=== PATIENT | male | born 1950 | race Caucasian/White ===

== ENCOUNTER 2022-06-09 21:57 | Inpatient (IN) | payer BC, MEDICARE ==
[2022-06-09] MEDS ORDERED: Acetaminophen 650 MG Suppository PR PRN (23:43)
[2022-06-09] MEDS ORDERED: Ondansetron PF 4 MG/2 ML Vial IVP PRN (23:43)
[2022-06-09] MEDS ORDERED: Ondansetron ODT 4 MG TAB PO PRN (23:43)
[2022-06-09] MEDS ORDERED: Acetaminophen 325 MG TAB PO PRN (23:43)
[2022-06-09] MEDS ORDERED: hydrALAZINE 20 MG/ML VIAL SLOW IVP PRN (23:47)
[2022-06-10 05:11] LABS: #Basophils 0.1 thou/uL (0.0-0.2); #Eosinphils 0.7 thou/uL (0.0-0.7); #Lymphocytes 2.6 thou/uL (1.20-3.40); #Monocytes 0.9 thou/uL (0.11-0.59); #Neutrophils 3.2 thou/uL (1.40-6.50); %Basophils 1.1 % (0.0-1.0); %Eosinophils 9.5 % (0.0-10.0); %Lymphocytes 34.7 % (21.0-51.0); %Monocytes 11.7 % (0.0-10.0); Hemoglobin 15.3 g/dL (14.0-18.0); Mean Corpuscular Hemoglobin 30.4 pg (27.0-31.0); Mean Corpuscular Volume 89.3 fL (78.0-98.0); Mean Platelet Volume 8.5 fL (7.4-10.4); Platelet Count 153 thou/uL (130-400); RBC Distribution Width 12.4 % (11.5-14.5); Red Blood Cell (RBC) Count 5.04 mill/uL (4.70-6.10); White Blood Cell (WBC) Count 7.4 thou/uL (4.8-10.8)
[2022-06-10 05:35] LABS: Anion Gap 12 mmol/L (10-20); BUN (Urea Nitrogen) 17 mg/dL (8.4-25.7); Calc. Creatinine Clearance 57 mL/min (70-130); Calcium 8.8 mg/dL (7.8-10.44); Carbon Dioxide 25 mmol/L (23-31); Cardiac Risk 6.1 (Less than 4.5); Chloride 108 mmol/L (98-107); Cholesterol 195 mg/dl (< 200 Desired); Estimated GFR 53; Glucose 125 mg/dL (83-110); HDL Cholesterol 32 mg/dL (>60 Neg Risk); LDL Cholesterol, Calculated 132 mg/dL; Potassium 4.2 mmol/L (3.5-5.1); Sodium 141 mmol/L (136-145); Triglycerides 156 mg/dL (Less than 150)
[2022-06-10] MEDS ORDERED: Sodium Chloride 0.9% 1,000 ML IV SCH (07:15)
[2022-06-10] MEDS ORDERED: Aspirin 325 mg Enteric Coated Tablet PO SCH (09:00)
[2022-06-10] MEDS: Enoxaparin Sodium 40 MG/0.4 ML SYRINGE SC SCH (09:10)
[2022-06-10] MEDS: Aspirin 81 mg Enteric Coated Tablet PO SCH (09:10)
[2022-06-10] MEDS ORDERED: Clopidogrel Bisulfate 75 MG TAB PO SCH (12:45)
[2022-06-10] MEDS ORDERED: Iopamidol 370 76% 100 ML VIAL ONE (16:04)
[2022-06-10] MEDS: Atorvastatin Calcium 40 MG TAB PO SCH (20:21)
[2022-06-11] MEDS ORDERED: Senokot S 8.6-50 MG TAB PO SCH (03:00)
[2022-06-11 05:27] LABS: Hemoglobin 15.2 g/dL (14.0-18.0); Mean Corpuscular Hemoglobin 29.1 pg (27.0-31.0); Mean Corpuscular Volume 88.2 fL (78.0-98.0); Mean Platelet Volume 8.5 fL (7.4-10.4); Platelet Count 153 thou/uL (130-400); RBC Distribution Width 12.3 % (11.5-14.5); Red Blood Cell (RBC) Count 5.24 mill/uL (4.70-6.10); White Blood Cell (WBC) Count 7.9 thou/uL (4.8-10.8)
[2022-06-11 05:42] LABS: Hemoglobin A1c 6.8 % (4.0-6.0)
[2022-06-11 05:48] LABS: Anion Gap 13 mmol/L (10-20); BUN (Urea Nitrogen) 16 mg/dL (8.4-25.7); Calc. Creatinine Clearance 60 mL/min (70-130); Calcium 8.9 mg/dL (7.8-10.44); Carbon Dioxide 24 mmol/L (23-31); Cardiac Risk 5.8 (Less than 4.5); Chloride 108 mmol/L (98-107); Cholesterol 191 mg/dl (< 200 Desired); Estimated GFR 56; Glucose 147 mg/dL (83-110); HDL Cholesterol 33 mg/dL (>60 Neg Risk); LDL Cholesterol, Calculated 131 mg/dL; Potassium 3.9 mmol/L (3.5-5.1); Sodium 141 mmol/L (136-145); Triglycerides 134 mg/dL (Less than 150)
[2022-06-11] MEDS ORDERED: Protamine Sulfate 50 MG/5 ML VIAL ONE (08:36)
[2022-06-11] MEDS ORDERED: Bupivacaine/Epinephrine 0.25% 30 ML VIAL ONE (08:36)
[2022-06-11] MEDS ORDERED: Heparin 5,000 UNITS/ML VIAL ONE (08:36)
[2022-06-11] MEDS ORDERED: Fentanyl 100 MCG/2 ML VIAL ONE (09:27)
[2022-06-11] MEDS ORDERED: Midazolam HCl 2 mg/2 ml Vial ONE (09:27)
[2022-06-11] MEDS ORDERED: Sodium Chloride 0.9% 100 ML ONE (09:32)
[2022-06-11] MEDS ORDERED: CEFAZOLIN 2 GM VIAL ONE (09:32)
[2022-06-11] MEDS ORDERED: Lidocaine 1% MPF 2 ML VIAL ONE ×2 (09:33→09:55)
[2022-06-11] MEDS ORDERED: niCARdipine 25 MG/10 ML VIAL ONE (10:00)
[2022-06-11] MEDS ORDERED: fentaNYL Citrate/PF 100 MCG/2 ML SYRINGE ONE (10:00)
[2022-06-11] MEDS ORDERED: Nitroglycerin 50 MG/250 ML BOT 0 ML ONE (10:00)
[2022-06-11] MEDS ORDERED: Phenylephrine 10 MG/ML VIAL ONE (10:00)
[2022-06-11] MEDS: Enoxaparin Sodium 40 MG/0.4 ML SYRINGE SC SCH (10:10)
[2022-06-11] MEDS: Aspirin 81 mg Enteric Coated Tablet PO SCH (10:10)
[2022-06-11] MEDS: Senokot S 8.6-50 MG TAB PO SCH ×2 (10:10→21:13)
[2022-06-11] MEDS ORDERED: Dexamethasone 20 MG/5 ML VIAL ONE (10:10)
[2022-06-11] MEDS ORDERED: Ondansetron PF 4 MG/2 ML Vial ONE (10:10)
[2022-06-11] MEDS: Clopidogrel Bisulfate 75 MG TAB PO SCH (10:10)
[2022-06-11] MEDS ORDERED: PROPOFOL 200 MG/20 ML VIAL ONE (10:10)
[2022-06-11] MEDS ORDERED: Rocuronium Bromide 10 MG/ML (10ML VIAL) ONE (10:10)
[2022-06-11] MEDS ORDERED: Glycopyrrolate 0.2 MG/ML 5 ML SYRINGE ONE (10:10)
[2022-06-11] MEDS ORDERED: ePHEDrine 50 MG/ML VIAL ONE (10:10)
[2022-06-11] MEDS ORDERED: Lidocaine 1% PF 5 ML VIAL ONE (10:10)
[2022-06-11] MEDS ORDERED: Ketorolac Tromethamine 30 MG/ML VIAL ONE (10:10)
[2022-06-11] MEDS ORDERED: Promethazine HCl 25 MG/ML VIAL IVPB PRN ×2 (10:50→11:58)
[2022-06-11] MEDS ORDERED: Ondansetron HCl/PF 4 MG/2 ML Vial IVP PRN ×2 (10:50→11:58)
[2022-06-11] MEDS ORDERED: HYDROmorphone 2 MG/ML VIAL SLOW IVP PRN (10:50)
[2022-06-11] MEDS ORDERED: Promethazine HCl 25 MG/ML VIAL IM PRN ×2 (10:50→11:58)
[2022-06-11] MEDS ORDERED: PACU-Morphine 4MG/ML VIAL SLOW IVP PRN (10:50)
[2022-06-11] MEDS ORDERED: Nitroglycerin 50 MG/250 ML BOT 250 ML IVPB PRN (11:40)
[2022-06-11] MEDS ORDERED: Fentanyl 100 MCG/2 ML VIAL SLOW IVP PRN (11:40)
[2022-06-11] MEDS ORDERED: Phenylephrine 40 MG in Sodium Chloride 0.9% 250 ML 250 ML IVPB PRN (11:40)
[2022-06-11] MEDS ORDERED: traMADol HCl 50 MG TAB PO PRN (11:40)
[2022-06-11] MEDS ORDERED: Sodium Chloride 0.9% 1,000 ML IV SCH (11:45)
[2022-06-11] MEDS: CEFAZOLIN 2 GM in Sodium Chloride 0.9% 100 ML IVPB SCH (17:41)
[2022-06-11] MEDS: Atorvastatin Calcium 40 MG TAB PO SCH (21:13)
[2022-06-12] MEDS: CEFAZOLIN 2 GM in Sodium Chloride 0.9% 100 ML IVPB SCH ×2 (03:00→10:31)
[2022-06-12 04:07] LABS: Mean Corpuscular HGB CONC 33.8 g/dL (32.0-36.0); Mean Corpuscular Hemoglobin 30.3 pg (27.0-31.0); Mean Corpuscular Volume 89.5 fL (78.0-98.0); Mean Platelet Volume 9.1 fL (7.4-10.4); Platelet Count 157 thou/uL (130-400); RBC Distribution Width 12.5 % (11.5-14.5); Red Blood Cell (RBC) Count 4.97 mill/uL (4.70-6.10); White Blood Cell (WBC) Count 16.2 thou/uL (4.8-10.8)
[2022-06-12 04:24] LABS: Anion Gap 15 mmol/L (10-20); BUN (Urea Nitrogen) 23 mg/dL (8.4-25.7); Calc. Creatinine Clearance 49 mL/min (70-130); Calcium 8.7 mg/dL (7.8-10.44); Carbon Dioxide 21 mmol/L (23-31); Chloride 109 mmol/L (98-107); Estimated GFR 44; Glucose 160 mg/dL (83-110); Potassium 4.6 mmol/L (3.5-5.1); Sodium 140 mmol/L (136-145)
[2022-06-12] MEDS: Aspirin 81 mg Enteric Coated Tablet PO SCH ×2 (08:46→08:47)
[2022-06-12] MEDS: Clopidogrel Bisulfate 75 MG TAB PO SCH (08:46)
[2022-06-12] MEDS: Enoxaparin Sodium 40 MG/0.4 ML SYRINGE SC SCH (08:47)
[2022-06-12] MEDS: Senokot S 8.6-50 MG TAB PO SCH ×2 (08:49→21:07)
[2022-06-12] MEDS: Lactated Ringer's 1,000 ML IV SCH (10:38)
[2022-06-12] MEDS ORDERED: Polyethylene Glycol 3350 17 GM Packet PO PRN (12:03)
[2022-06-12] MEDS ORDERED: Docusate 100 MG CAP PO PRN (12:03)
[2022-06-12] MEDS ORDERED: Polyethylene Glycol 3350 17 GM Packet PO SCH (12:15)
[2022-06-12] MEDS ORDERED: Docusate 100 MG CAP PO SCH (12:15)
[2022-06-12 14:32] LABS: Hemoglobin 13.9 g/dL (14.0-18.0)
[2022-06-12] MEDS: Atorvastatin Calcium 40 MG TAB PO SCH (21:07)
[2022-06-13] MEDS: Lactated Ringer's 1,000 ML IV SCH ×3 (02:47→23:45)
[2022-06-13 07:09] LABS: #Basophils 0.1 thou/uL (0.0-0.2); #Eosinphils 0.6 thou/uL (0.0-0.7); #Lymphocytes 2.5 thou/uL (1.20-3.40); #Monocytes 1.1 thou/uL (0.11-0.59); #Neutrophils 5.9 thou/uL (1.40-6.50); %Basophils 0.7 % (0.0-1.0); %Eosinophils 6.1 % (0.0-10.0); %Lymphocytes 24.4 % (21.0-51.0); %Monocytes 10.8 % (0.0-10.0); %Neutrophils 58.1 % (42.0-75.0); Hemoglobin 14.1 g/dL (14.0-18.0); Mean Corpuscular HGB CONC 33.2 g/dL (32.0-36.0); Mean Corpuscular Hemoglobin 29.6 pg (27.0-31.0); Mean Platelet Volume 8.8 fL (7.4-10.4); Platelet Count 134 thou/uL (130-400); RBC Distribution Width 12.5 % (11.5-14.5); Red Blood Cell (RBC) Count 4.78 mill/uL (4.70-6.10); White Blood Cell (WBC) Count 10.1 thou/uL (4.8-10.8)
[2022-06-13 07:26] LABS: Anion Gap 10 mmol/L (10-20); BUN (Urea Nitrogen) 20 mg/dL (8.4-25.7); Calc. Creatinine Clearance 58 mL/min (70-130); Calcium 8.4 mg/dL (7.8-10.44); Carbon Dioxide 26 mmol/L (23-31); Chloride 109 mmol/L (98-107); Estimated GFR 54; Glucose 135 mg/dL (83-110); Sodium 141 mmol/L (136-145)
[2022-06-13] MEDS: Senokot S 8.6-50 MG TAB PO SCH ×2 (09:35→21:02)
[2022-06-13] MEDS: Clopidogrel Bisulfate 75 MG TAB PO SCH (09:35)
[2022-06-13] MEDS: Enoxaparin Sodium 40 MG/0.4 ML SYRINGE SC SCH (09:35)
[2022-06-13] MEDS ORDERED: Amlodipine 5 MG TAB PO SCH (15:15)
[2022-06-13] MEDS ORDERED: Lisinopril 5 MG TAB PO SCH (16:30)
[2022-06-13] MEDS: Atorvastatin Calcium 40 MG TAB PO SCH (21:02)
[2022-06-14] MEDS: Clopidogrel Bisulfate 75 MG TAB PO SCH (09:00)
[2022-06-14] MEDS: Enoxaparin Sodium 40 MG/0.4 ML SYRINGE SC SCH (09:00)
[2022-06-14] MEDS ORDERED: Amlodipine 5 MG TAB PO SCH (09:00)
[2022-06-14] MEDS: Senokot S 8.6-50 MG TAB PO SCH (09:00)
[2022-06-14] MEDS ORDERED: Lisinopril 5 MG TAB PO SCH (09:00)
[2022-06-14] MEDS: Aspirin 81 mg Enteric Coated Tablet PO SCH (09:00)
[2022-06-14 11:48] VITALS: BMI 27.5
[2022-06-14] MEDS ORDERED: cloNIDine 0.1 MG TAB PO SCH ×2 (12:30→21:00)
[2022-06-14] MEDS ORDERED: Magnesium Citrate 300 ML BOT PO SCH (14:00)
[2022-06-14] MEDS: Fleet Enema 133 ML BOT PR SCH ×2 (14:19→15:08)
[2022-06-14] MEDS: Lactated Ringer's 1,000 ML IV SCH (15:07)
[2022-06-14 16:17] VITALS: TEMP 97.8
[2022-06-14 16:20] VITALS: BP 149/83
[2022-06-15] MEDS ORDERED: Lisinopril 10 MG TAB PO SCH (09:00)
[2022-06-15] MEDS ORDERED: Amlodipine 10 MG TAB PO SCH (09:00)
== END 2022-06-14 18:44 | disposition home health service (06) | DRG 38 ==
LOC: 2SW 22:18 → OBSVTOIN 06-10 14:38 → CCU 06-11 08:53 → NEURO 06-12 10:57
PROVIDERS: ADMIT Student in an Organized Health Care Education/Training Program; ATTEND Family Medicine
PROC: 03CJ0ZZ Extirpation of Matter from Left Common Carotid Artery, Open Approach (ICD-10-PCS; principal; 2022-06-11)
PROC: 03UJ0KZ Supplement Left Common Carotid Artery with Nonautologous Tissue Substitute, Open Approach (ICD-10-PCS; 2022-06-11)
DX: I63.89 Other cerebral infarction (principal); G81.91 Hemiplegia, unspecified affecting right dominant side; N17.9 Acute kidney failure, unspecified; I06.9 Rheumatic aortic valve disease, unspecified; I65.22 Occlusion and stenosis of left carotid artery; I48.0 Paroxysmal atrial fibrillation; E11.9 Type 2 diabetes mellitus without complications; H53.2 Diplopia; Z79.82 Long term (current) use of aspirin; Z86.16 Personal history of COVID-19; K59.00 Constipation, unspecified; Z20.822 Contact with and (suspected) exposure to COVID-19
CPT/HCPCS: 36415; 70496; 70498; 70551; 80048; 80061; 83036; 85025; 85027; 93306; 96372; C1768; G0378; J0360; J0690; J1100; J1642; J1644; J1650; J1885; J2250; J2370; J2405; J2704; J2710; J2720; J3010; J3490; J7050; J7120; Q9967